=== PATIENT | male | born 1980 | race American Indian/Alaskan Native ===

== ENCOUNTER 2019-03-29 17:03 | Emergency (ER) | payer SELFPAY ==
--- NOTE | 2019-03-29 17:17 | Event Note ---
ED Screening Note ED Screening Note: pt presents for a cough that began this morning left rib pain with coughing no SOB no fever no recent travel, no recent surgery, no swelling in the LE no PMHx no allergies to meds +smoker, 1 to 2 cigars a day This initial assessment/diagnostic orders/clinical plan/treatment(s) is/are subject to change based on patients health status, clinical progression and re- assessment by fellow clinical providers in the ED. Further treatment and workup at subsequent clinical providers discretion. Patient/guardian urged not to elope from the ED as their condition may be serious if not clinically assessed and managed. Initial orders include: CXR
--- NOTE | 2019-03-29 17:41 | XRay Report ---
CHEST 2 VIEWS INDICATION: cough. COMPARISON: None FINDINGS: Support devices: None. Heart: Within normal limits. Lungs/pleura: No acute air space or interstitial disease. No pneumothorax. Additional findings: None. IMPRESSION: 1. No acute findings. Signer Name: Anibal James MD Signed: 03/29/2019 5:37 PM Workstation Name: [id number]
--- NOTE | 2019-03-29 18:14 | Emergency Department Report ---
- General Chief Complaint: Upper Respiratory Infection Stated Complaint: COUGH UP BLOOD/CHEST PAIN Time Seen by Provider: 03/29/19 17:15 Source: patient Mode of arrival: Ambulatory Limitations: No Limitations - History of Present Illness Initial Comments: Patient is a 2-year-old -[place] male who is presenting with some left sided rib discomfort as well as hemoptysis. Patient states that he is a cigar smoker and occasionally will wake up in the morning and have some pale yellow to clear mucus that he'll cough up then will feel fine for the rest of the day. Patient states he woke up this morning with his normal congestion but when he coughed there was blood streaks in the mucus. Patient has had continued cough that is not productive of bloody sputum through the out the day. Cough is minimal. Patient states when he takes a deep breath he feels a sharp discomfort in his left-sided ribs. He denies any trauma. Patient states is been no fevers chills and sore throat nausea vomiting or diarrhea at this time. - Related Data Previous Rx's Medication Instructions Recorded Last Taken Type ALBUTEROL Inhaler (OR & NICU) 2 puff IH QID PRN #1 inhalation 03/29/19 Unknown Rx [ProAir HFA Inhaler] Apixaban [Eliquis starter pack] 5 mg PO BID #1 tab.ds.pk 03/29/19 Unknown Rx DOXYCYCLINE Hyclate [Vibramycin 100 mg PO Q12HR #14 capsule 03/29/19 Unknown Rx CAP] traMADol [Ultram] 50 mg PO Q6HR PRN #12 tablet 03/29/19 Unknown Rx Allergies Allergy/AdvReac Type Severity Reaction Status Date / Time No Known Allergies Allergy Unverified 03/29/19 17:04 ED Review of Systems ROS: Stated complaint: COUGH UP BLOOD/CHEST PAIN Other details as noted in HPI Comment: All other systems reviewed and negative ED Past Medical Hx - Past Medical History Previous Medical History?: No - Surgical History Past Surgical History?: No - Social History Smoking Status: Current Every Day Smoker Substance Use Type: Marijuana - Medications Home Medications: Home Medications Medication Instructions Recorded Confirmed Last Taken Type ALBUTEROL Inhaler (OR & NICU) 2 puff IH QID PRN #1 inhalation 03/29/19 Unknown Rx [ProAir HFA Inhaler] Apixaban [Eliquis starter pack] 5 mg PO BID #1 tab.ds.pk 03/29/19 Unknown Rx DOXYCYCLINE Hyclate [Vibramycin 100 mg PO Q12HR #14 capsule 03/29/19 Unknown Rx CAP] traMADol [Ultram] 50 mg PO Q6HR PRN #12 tablet 03/29/19 Unknown Rx ED Physical Exam - General Limitations: No Limitations General appearance: alert, in no apparent distress - Head Head exam: Present: atraumatic, normocephalic - Eye Eye exam: Present: normal appearance - ENT ENT exam: Present: mucous membranes moist - Neck Neck exam: Present: normal inspection - Respiratory Respiratory exam: Present: normal lung sounds bilaterally, rhonchi (left lower lung field). Absent: respiratory distress, wheezes, rales - Cardiovascular Cardiovascular Exam: Present: regular rate, normal rhythm, normal heart sounds. Absent: systolic murmur, diastolic murmur, rubs, gallop - GI/Abdominal GI/Abdominal exam: Present: soft, normal bowel sounds. Absent: distended, tenderness, guarding, rebound - Rectal Rectal exam: Present: deferred - Extremities Exam Extremities exam: Present: normal inspection - Back Exam Back exam: Present: normal inspection - Neurological Exam Neurological exam: Present: alert, oriented X3 - Psychiatric Psychiatric exam: Present: normal affect, normal mood - Skin Skin exam: Present: warm, dry, intact, normal color. Absent: rash ED Course Vital Signs 03/29/19 17:06 Temperature 98.6 F Pulse Rate 100 H Respiratory 16 Rate Blood Pressure 127/81 O2 Sat by Pulse 99 Oximetry - Reevaluation(s) Reevaluation #1: 03/29/19 18:13 X-ray will be taken to rule out obvious infiltrate. D-dimer reorders well to screen the patient for possibility of a PE. ED Medical Decision Making - Lab Data Result diagrams: 03/29/19 18:29 03/29/19 18:29 Lab Results 03/29/19 03/29/19 03/29/19 Range/Units 18:29 18:29 18:29 WBC 13.0 H (4.5-11.0) K/mm3 RBC 4.77 (3.65-5.03) M/mm3 Hgb 14.6 (11.8-15.2) gm/dl Hct 44.3 (35.5-45.6) % MCV 93 (84-94) fl MCH 31 (28-32) pg MCHC 33 (32-34) % RDW 12.8 L (13.2-15.2) % Plt Count 223 (140-440) K/mm3 Lymph % (Auto) 20.1 (13.4-35.0) % [place] % (Auto) 9.4 H (0.0-7.3) % Eos % (Auto) 1.3 (0.0-4.3) % Baso % (Auto) 0.6 (0.0-1.8) % Lymph # 2.6 (1.2-5.4) K/mm3 [place] # 1.2 H (0.0-0.8) K/mm3 Eos # 0.2 (0.0-0.4) K/mm3 Baso # 0.1 (0.0-0.1) K/mm3 Seg Neutrophils % 68.6 (40.0-70.0) % Seg Neutrophils # 8.9 H (1.8-7.7) K/mm3 D-Dimer 1070.58 H (0-234) ng/mlDDU Sodium 141 (137-145) mmol/L Potassium 4.5 (3.6-5.0) mmol/L Chloride 104.2 (98-107) mmol/L Carbon Dioxide 23 (22-30) mmol/L Anion Gap 18 mmol/L BUN 9 (9-20) mg/dL Creatinine 0.9 (0.8-1.5) mg/dL Estimated GFR > 60 ml/min BUN/Creatinine Ratio 10 % Glucose 90 (75-100) mg/dL Calcium 9.2 (8.4-10.2) mg/dL Total Bilirubin 1.50 H (0.1-1.2) mg/dL AST 15 (5-40) units/L ALT 10 (7-56) units/L Alkaline Phosphatase 96 (35-129) units/L Total Protein 7.8 (6.3-8.2) g/dL Albumin 4.3 (3.9-5) g/dL Albumin/Globulin Ratio 1.2 % - Radiology Data CHEST 2 VIEWS INDICATION: cough. COMPARISON: None FINDINGS: Support devices: None. Heart: Within normal limits. Lungs/pleura: No acute air space or interstitial disease. No pneumothorax. Additional findings: None. IMPRESSION: 1. No acute findings. Signer Name: Anibal James MD Signed: 03/29/2019 5:37 PM Workstation Name: [id number] CTA CHEST WITH IV CONTRAST INDICATION: left sided pleuritic pain with elevated ddimer CONTRAST: 100 cc Omnipaque 350 IV COMPARISON: Chest x-ray tonight Three-plane MIP reconstructions were produced. All CT scans at this location are performed using CT dose reduction for ALARA by means of automated exposure control. FINDINGS: No significant axillary or chest wall abnormality seen. Visualized portions of the upper abdomen show no abnormalities. No mediastinal or hilar masses are noted. Mild scarring or atelectasis is seen in the lateral segment of the right middle lobe. Right lung otherwise is clear. No pulmonary nodules or masses are seen. Moderate focal peripheral consolidation is seen in the posterior aspect of the left lower lobe. Aorta shows no aneurysmal dilatation or evidence of dissection. Good opacification of the pulmonary arterial system was achieved. Small amount of PTE is seen in the lower lobes bilaterally in mid to small branches. This includes branches extending to the peripheral area of consolidation on the left. No large or central PTE is seen. No evidence of right heart strain is noted. IMPRESSION: Mild mid to small branch bilateral lower lobe PTE with evidence of focal pulmonary infarction in the left lower lobe. No evidence of right heart strain. CRITICAL RESULT: Time of Discovery: 1907 Time of Communication: 1909 Licensed Practitioner Receiving Report: Dr. Lamb Read Back Performed: not pertinent - Medical Decision Making Patient is a 38-year-old -[place] male with no significant past medical history who is presenting with pleuritic left-sided chest discomfort and hemoptysis. Patient did have 2 additional episodes of hemoptysis in the emergency department which I was able to witness. In the patient's clear sputum there were some small streaks of blood. CTA was suggestive of several small branch pulmonary embolus line with a left lower lobe pulmonary infarct. Had a long conversation with the patient regarding treatment plan. My suggestion was that we keep the patient in the hospital for observation while restart his anticoagulation since he is having hemoptysis. Patient states he is going through a divorce and has to pay child support [address] since he is essentially homeless and living wi th family and the patient states he cannot miss work. Patient also states that staying in the hospital place him in a much worse financial bind. Discussed the case with Dr. Knight with the hospitalist service and he states that he will see the patient as outpatient in 2 days at his clinic. We discussed that the patient should be given a dose of Lovenox here in emergency department and the patient can be started on Eliquis as an outpatient as a second best option for the patient as opposed to admitting him. Patient was monitored here in the emergency department for several hours after receiving the Lovenox. Patient is not having any increase of his hemoptysis. Patient does appear stable. Patient was signed out AGAINST MEDICAL ADVICE at this time but will have close follow- up with internal medicine. Critical care attestation.: If time is entered above; I have spent that time in minutes in the direct care of this critically ill patient, excluding procedure time. ED Disposition Clinical Impression: Pulmonary embolism and infarction Disposition: LEFT AGAINST MED ADVICE Is pt being admited?: No Condition: Stable Instructions: Pulmonary Embolism (GEN), Acute Hemoptysis (ED) Prescriptions: Apixaban [Eliquis starter pack] 5 mg PO BID #1 tab.ds.pk Referrals: HOLLIE UNDERWOOD MD [Staff Physician] - 2-3 Days Time of Disposition: 23:16
[2019-03-29 18:46] LABS: Basophils # (Auto) 0.1 K/mm3 (0.0-0.1); Basophils % (Auto) 0.6 % (0.0-1.8); Eosinophils # (Auto) 0.2 K/mm3 (0.0-0.4); Eosinophils % (Auto) 1.3 % (0.0-4.3); Hematocrit 44.3 % (35.5-45.6); Hemoglobin 14.6 gm/dl (11.8-15.2); Lymphocytes # (Auto) 2.6 K/mm3 (1.2-5.4); Lymphocytes % (Auto) 20.1 % (13.4-35.0); Mean Corpuscular HGB Conc 33 % (32-34); Mean Corpuscular Volume 93 fl (84-94); Monocytes # (Auto) 1.2 K/mm3 (0.0-0.8); Monocytes % (Auto) 9.4 % (0.0-7.3); Platelet Count 223 K/mm3 (140-440); Red Blood Count 4.77 M/mm3 (3.65-5.03); Red Cell Distribution Width 12.8 % (13.2-15.2)
[2019-03-29 19:05] LABS: Alanine Aminotransferase 10 units/L (7-56); Albumin 4.3 g/dL (3.9-5); BUN/Creatinine Ratio 10; Blood Urea Nitrogen 9 mg/dL (9-20); Calcium 9.2 mg/dL (8.4-10.2); Hemolysis Index 29
--- NOTE | 2019-03-29 20:18 | Cat Scan Report ---
CTA CHEST WITH IV CONTRAST INDICATION: left sided pleuritic pain with elevated ddimer CONTRAST: 100 cc Omnipaque 350 IV COMPARISON: Chest x-ray tonight Three-plane MIP reconstructions were produced. All CT scans at this location are performed using CT d ose reduction for ALARA by means of automated exposure control. FINDINGS: No significant axillary or chest wall abnormality seen. Visualized portions of the upper ab domen show no abnormalities. No mediastinal or hilar masses are noted. Mild scarring or atelectasis i s seen in the lateral segment of the right middle lobe. Right lung otherwise is clear. No pulmonary n odules or masses are seen. Moderate focal peripheral consolidation is seen in the posterior aspect of the left lower lobe. Aorta shows no aneurysmal dilatation or evidence of dissection. Good opacification of the pulmonary arterial system was achieved. Small amount of PTE is seen in the lower lobes bilaterally in mid to small branches. This includes branches extending to the peripheral area of consolidation on the left. No large or central PTE is seen. No evidence of right heart strain is noted. IMPRESSION: Mild mid to small branch bilateral lower lobe PTE with evidence of focal pulmonary infarc tion in the left lower lobe. No evidence of right heart strain. CRITICAL RESULT: Time of Discovery: 1907 Time of Communication: 1909 Licensed Practitioner Receiving Report: Dr. Lamb Read Back Performed: not pertinent Signer Name: Luciano Jensen MD Signed: 03/29/2019 8:13 PM Workstation Name: [id number]
[2019-03-29] MEDS ORDERED: ENOXAPARIN 100 MG/1 ML INJ SUB-Q ONE (20:41)
[2019-03-29 23:41] VITALS: BP 118/88
== END 2019-03-29 23:43 | disposition left against medical advice (07) ==
LOC: ED 17:03
DX: I26.99 Other pulmonary embolism without acute cor pulmonale (principal); F17.200 Nicotine dependence, unspecified, uncomplicated; F12.10 Cannabis abuse, uncomplicated; Z79.899 Other long term (current) drug therapy
CPT/HCPCS: 36415; 71046; 71275; 80053; 85025; 85379; 96372; 99284; J1650; Q9967